=== PATIENT | male | born 1960 | race Caucasian/White ===

== ENCOUNTER 2023-07-30 08:37 | Emergency (ER) | payer OTHER ==
[2023-07-30] MEDS ORDERED: Ondansetron 4 MG/2 ML SDV IVPUSH ONE (09:03)
[2023-07-30] MEDS ORDERED: Sodium Chloride 0.9% 1,000 ML IV ONE (09:03)
[2023-07-30 09:36] LABS: BASOPHILS ABSOLUTE AUTO 0.07 K/uL (0.00-0.20); BASOPHILS PERCENT AUTO 0.8 % (0.0-1.0); EOSINOPHILS ABSOLUTE AUTO 0.09 K/uL (0.00-0.45); HEMATOCRIT 49.4 % (42.0-52.0); HEMOGLOBIN 16.8 g/dL (14.0-18.0); IMMATURE GRAN ABSOLUTE AUTO 0.03 K/uL (0.00-0.05); IMMATURE GRAN PERCENT AUTO 0.3 % (0.0-0.4); LYMPHOCYTES ABSOLUTE AUTO 2.15 K/uL (1.00-4.80); LYMPHOCYTES PERCENT AUTO 23.6 % (24.0-44.0); MEAN CORPUSCULAR HEMOGLOBIN 32.1 pg (28.0-32.0); MEAN CORPUSCULAR VOLUME 94.5 fL (83.0-99.0); MEAN PLATELET VOLUME 9.3 fL (9.4-12.4); MONOCYTES ABSOLUTE AUTO 0.64 K/uL (0.00-0.80); NEUTROPHILS ABSOLUTE AUTO 6.12 K/uL (1.80-7.70); NEUTROPHILS PERCENT AUTO 67.3 % (41.0-71.0); PLATELET COUNT,PLT 304 K/uL (150-400); RED BLOOD CELL COUNT 5.23 M/uL (4.52-5.90)
[2023-07-30 09:59] LABS: ALBUMIN 3.5 g/dL (3.4-5.0); BILIRUBIN TOTAL 0.5 mg/dL (0.2-1.0); CALCIUM 8.4 mg/dL (8.5-10.1); CREATININE 1.2 mg/dL (0.8-1.3); EST CRCL DRUG DOSING (CG) 57.6 mL/min; POTASSIUM,K 3.9 mmol/L (3.5-5.1); PROTEIN TOTAL,TP 7.1 g/dL (6.4-8.2); TSH ULTRASENSITIVE 1.05 uIU/mL (0.36-3.74)
[2023-07-30 10:14] LABS: CORONAVIRUS COVID-19 NAA NEGATIVE (NEGATIVE); INFLUENZA A NAA NEGATIVE (NEGATIVE); INFLUENZA B NAA NEGATIVE (NEGATIVE)
== END 2023-07-30 10:47 | disposition home or self-care (01) ==
LOC: MW.ED 08:37
DX: R53.83 Other fatigue (principal); F10.10 Alcohol abuse, uncomplicated; I10 Essential (primary) hypertension; E78.5 Hyperlipidemia, unspecified; I25.10 Atherosclerotic heart disease of native coronary artery without angina pectoris; I25.2 Old myocardial infarction; Z20.822 Contact with and (suspected) exposure to COVID-19; Z79.899 Other long term (current) drug therapy
CPT/HCPCS: 0240U; 36415; 80053; 80307; 83690; 83735; 84443; 84484; 85025; 93005; 96361; 96374; 99283; J2405; J7030; 93010; 99284

== ENCOUNTER 2024-03-30 06:28 | Emergency (ER) | payer OTHER ==
[2024-03-30] MEDS: Sodium Chloride 0.9% 1,000 ML IV ONE ×2 (07:42→09:30)
[2024-03-30] MEDS: Sodium Chloride 0.9% 10 ML Syringe FLUSH PRN (07:42)
[2024-03-30] MEDS: Sodium Chloride 0.9% 2.5 ML Syringe FLUSH PRN (07:42)
[2024-03-30 08:05] LABS: BASOPHILS ABSOLUTE AUTO 0.08 K/uL (0.00-0.20); BASOPHILS PERCENT AUTO 0.9 % (0.0-1.0); EOSINOPHILS ABSOLUTE AUTO 0.28 K/uL (0.00-0.45); EOSINOPHILS PERCENT AUTO 3.1 % (0.0-6.0); HEMATOCRIT 46.7 % (42.0-52.0); IMMATURE GRAN ABSOLUTE AUTO 0.04 K/uL (0.00-0.05); IMMATURE GRAN PERCENT AUTO 0.4 % (0.0-0.4); LYMPHOCYTES ABSOLUTE AUTO 2.54 K/uL (1.00-4.80); MEAN CORPUSCULAR HEMOGLOBIN 33.2 pg (28.0-32.0); MEAN CORPUSCULAR HGB CONC 34.3 g/dL (32.0-36.0); MEAN CORPUSCULAR VOLUME 96.9 fL (83.0-99.0); MEAN PLATELET VOLUME 9.6 fL (9.4-12.4); MONOCYTES ABSOLUTE AUTO 0.71 K/uL (0.00-0.80); MONOCYTES PERCENT AUTO 7.8 % (0.0-8.0); NEUTROPHILS ABSOLUTE AUTO 5.42 K/uL (1.80-7.70); NEUTROPHILS PERCENT AUTO 59.8 % (41.0-71.0); PLATELET COUNT,PLT 344 K/uL (150-400); RED BLOOD CELL COUNT 4.82 M/uL (4.52-5.90); WHITE BLOOD CELL COUNT,WBC 9.07 K/uL (3.9-11.3)
[2024-03-30 08:27] LABS: INR 1.09 (0.86-1.11)
[2024-03-30 08:30] LABS: A/G RATIO 0.9 (0.9-1.6); ALANINE AMINOTRANSFERASE,ALT 27 IU/L (14-63); ALBUMIN 3.2 g/dL (3.4-5.0); ALKALINE PHOSPHATASE 110 U/L (46-116); ASPARTATE AMNIOTRANSFERASE,AST 20 IU/L (15-37); BILIRUBIN TOTAL 0.3 mg/dL (0.2-1.0); BLOOD UREA NITROGEN,BUN 12 mg/dL (7.0-18.0); CALCIUM 8.5 mg/dL (8.5-10.1); CARBON DIOXIDE,CO2 24.9 mmol/L (21.0-32.0); CHLORIDE,CL 104 mmol/L (98-107); CREATININE 1.2 mg/dL (0.8-1.3); EST CRCL DRUG DOSING (CG) 56.86 mL/min; GLUCOSE RANDOM 105 mg/dL (74-106); POTASSIUM,K 3.9 mmol/L (3.5-5.1); PROTEIN TOTAL,TP 6.6 g/dL (6.4-8.2); SODIUM,NA 139 mmol/L (136-148)
[2024-03-30 08:33] LABS: ESTIMATED GFR 68 mL/min (>60)
[2024-03-30 09:06] LABS: APPEARANCE,URINE CLEAR; BILIRUBIN,URINE NEGATIVE (NEGATIVE); COLOR,URINE YELLOW; GLUCOSE,URINE NEGATIVE (NEGATIVE); KETONES,URINE TRACE mg/dL (NEGATIVE); LEUKOCYTE ESTERASE,URINE NEGATIVE (NEGATIVE); NITRITE,URINE NEGATIVE (NEGATIVE); OCCULT BLOOD,URINE NEGATIVE (NEGATIVE); PROTEIN,URINE NEGATIVE (NEGATIVE); UROBILINOGEN,URINE 0.2 EU/dL (<2.0)
== END 2024-03-30 11:17 | disposition home or self-care (01) ==
LOC: MW.ED 06:28
DX: R20.2 Paresthesia of skin (principal); I10 Essential (primary) hypertension; I25.2 Old myocardial infarction; Z95.5 Presence of coronary angioplasty implant and graft; Z87.891 Personal history of nicotine dependence; Z79.899 Other long term (current) drug therapy
CPT/HCPCS: 36415; 70450; 72125; 80053; 81003; 84484; 85025; 85610; 93005; 96360; 96361; 99284; J3490; J7030

== ENCOUNTER 2024-06-09 06:39 | Day surgery (SDC) | payer OTHER ==
[~2024-06-09 06:39] MED LIST: Acetaminophen 1,000 MG in Premix Bag 1 BAG IV SCH; ceFAZolin 2 GM in Sodium Chloride 0.9% 50 ML IV ONE
[2024-06-09] MEDS ORDERED: ePHEDrine 50 MG/ML SDV IV ONE (06:40)
[2024-06-09] MEDS ORDERED: Sugammadex Sodium 200 MG/2 ML VIAL IV ONE (06:40)
[2024-06-09] MEDS ORDERED: Pregabalin 75 MG Cap ONE (06:58)
[2024-06-09] MEDS: Pregabalin 75 MG Cap PO SCH (07:05)
[2024-06-09] MEDS ORDERED: Bupivacaine 0.25% 30 ML SDV ONE (07:13)
[2024-06-09] MEDS ORDERED: Ropivacaine 0.5% 5 MG/ML 30 ML SDV ONE (07:13)
[2024-06-09] MEDS ORDERED: Bupivacaine 0.5% 30 ML SDV ONE (07:13)
[2024-06-09] MEDS ORDERED: dexmedeTOMIDine HCl 200 MCG/2 ML SDV ONE (07:15)
[2024-06-09] MEDS ORDERED: Water For Injection, Sterile 20 ML ONE (07:15)
[2024-06-09] MEDS ORDERED: Propofol 200 MG/20 ML SDV ONE (07:16)
[2024-06-09] MEDS ORDERED: Rocuronium Bromide 50 MG/5 ML Syringe ONE (07:17)
[2024-06-09] MEDS ORDERED: fentaNYL 100 MCG/2 ML SDV ONE ×2 (07:17→09:26)
[2024-06-09] MEDS ORDERED: Ondansetron 4 MG/2 ML SDV ONE (07:17)
[2024-06-09] MEDS ORDERED: Dexamethasone 4 MG/ML 5 ML MDV ONE (07:17)
[2024-06-09] MEDS ORDERED: Lidocaine 2% 5 ML SDV ONE (07:17)
[2024-06-09] MEDS ORDERED: Midazolam 1 MG/ML 2 ML SDV ONE (07:19)
[2024-06-09] MEDS: Lactated Ringers 1,000 ML IV SCH (07:36)
[2024-06-09] MEDS ORDERED: fentaNYL 50 MCG/ML SDV IVPUSH PRN (07:56)
[2024-06-09] MEDS ORDERED: Ondansetron 4 MG/2 ML SDV IVPUSH PRN (07:56)
[2024-06-09] MEDS ORDERED: HYDROmorphone 1 MG/ML Syringe IVPUSH PRN (07:56)
[2024-06-09] MEDS ORDERED: Metoclopramide 10 MG/2 ML SDV IVPUSH PRN (07:56)
[2024-06-09] MEDS ORDERED: Morphine 2 MG/ML SYRINGE IVPUSH PRN (07:56)
[2024-06-09] MEDS ORDERED: droPERidol 5 MG/2 ML SDV IVPUSH PRN (07:56)
[2024-06-09] MEDS ORDERED: Albuterol 0.083% 2.5 MG/3 ML Neb Soln NEB PRN (07:56)
[2024-06-09] MEDS ORDERED: Naloxone 0.4 MG/ML SDV IVPUSH PRN (07:56)
[2024-06-09] MEDS ORDERED: Phenylephrine HCl In 0.9% NaCl 1 MG/10 ML Syringe IVPUSH PRN (07:56)
[2024-06-09] MEDS ORDERED: ceFAZolin 2 GM Vial ONE (08:25)
[2024-06-09] MEDS ORDERED: Phenylephrine HCl In 0.9% NaCl 1 MG/10 ML Syringe ONE (09:21)
[2024-06-09] MEDS ORDERED: Ketorolac 30 MG/ML SDV ONE (09:27)
== END 2024-06-09 11:10 | disposition home or self-care (01) ==
LOC: MW.SDS 06:39
PROVIDERS: ATTEND Surgery
DX: K42.9 Umbilical hernia without obstruction or gangrene (principal); I25.10 Atherosclerotic heart disease of native coronary artery without angina pectoris; E78.00 Pure hypercholesterolemia, unspecified; I10 Essential (primary) hypertension; Z79.82 Long term (current) use of aspirin; Z79.899 Other long term (current) drug therapy; Z87.891 Personal history of nicotine dependence
CPT/HCPCS: 49591; A9270; C1781; J0665; J0690; J1100; J1885; J2250; J2371; J2704; J2795; J3010; J3490; J7120; 00830; 64488; J2405